=== PATIENT | male | born 1970 | race Caucasian/White ===

== ENCOUNTER → 2018-01-24 | Outpatient (CLI) | payer OTHER ==
--- NOTE | 2018-01-24 22:43 | MR ---
EXAMINATION TYPE: MR lumbar spine wo con DATE OF EXAM: 01/24/2018 COMPARISON: None HISTORY: LBP, RLE radiculopathy x 8 mos TECHNIQUE: Multiplanar, multisequence images of the lumbar spine were acquired. L1-L2: Normal disc appearance without desiccation. No herniation, protrusion or disc bulging. No ca nal stenosis is present. Foramina are patent bilaterally. L2-L3: Normal disc appearance without desiccation. No herniation, protrusion or disc bulging. No ca nal stenosis is present. Foramina are patent bilaterally. L3-L4: Normal disc appearance without desiccation. No herniation, protrusion or disc bulging. No ca nal stenosis is present. Foramina are patent bilaterally. L4-L5: Central posterior broad-based disc bulge causes anterior mass effect on the thecal sac, mild c entral canal stenosis. No significant foraminal encroachment. L5-S1: There is a large central right posterior paracentral disc herniation causing anterior mass eff ect on the thecal sac and likely displacing the proximal S1 nerve roots. This results in moderate kemal tral canal stenosis. There is loss of disc height and signal. Lumbar segments are intact. No paraspinal masses are identified. Conus medullaris has a normal appe arance. Lumbar vertebral bodies show preserved height and alignment. Bone marrow signal is maintained . IMPRESSION: Disc herniations L5-S1, L4-5 as described.
== END | disposition home or self-care (01) ==
LOC: RADMRIMAIN 21:39
PROVIDERS: ATTEND Neuromusculoskeletal Medicine & OMM
DX: M51.26 Other intervertebral disc displacement, lumbar region (principal); M51.27 Other intervertebral disc displacement, lumbosacral region
CPT/HCPCS: 72148